=== PATIENT | female | born 1975 | race Caucasian/White ===

== ENCOUNTER → 2024-03-20 15:01 | Outpatient (BNVA) | payer OTHER, SELFPAY | DX: R05.9 Cough, unspecified (principal) | CPT/HCPCS: 87400; 87426 ==

== ENCOUNTER 2024-06-29 16:15 | Outpatient (CLI) | payer OTHER, SELFPAY ==
--- NOTE | 2024-06-29 16:19 | XRR_ITS ---
PROCEDURE INFORMATION: Exam: XR Cervical Spine Exam date and time: 06/29/2024 4:36 PM Age: 49 years old Clinical indication: Neck pain TECHNIQUE: Imaging protocol: Radiologic exam of the cervical spine. Views: 2 or 3 views. COMPARISON: CR XR chest 2V* [id number] 06/29/2024 4:36 PM FINDINGS: Bones/joints: Straightening of the cervical spine. 1-2 mm anterolisthesis of C3, C4, and C7. 2 mm retrolisthesis of C5. Mild C5-C6 degenerative disc disease. Mild scoliosis convex to the right. Otherwise, unremarkable. Soft tissues: Unremarkable. XR/XR cervical spine 3V* [id number] IMPRESSION: 1. No acute findings. 2. Additional details as above.
--- NOTE | 2024-06-29 16:19 | XRR_ITS ---
PROCEDURE INFORMATION: Exam: XR Chest Exam date and time: 06/29/2024 4:36 PM Age: 49 years old Clinical indication: Cough; Additional info: Chronic cough TECHNIQUE: Imaging protocol: Radiologic exam of the chest. Views: 2 views. COMPARISON: CR XR cervical spine 3V* [id number] 06/29/2024 4:36 PM FINDINGS: Lungs: Unremarkable. No consolidation. Pleural spaces: Unremarkable. No pleural effusion. No pneumothorax. Heart/Mediastinum: Unremarkable. No cardiomegaly. Bones/joints: Mild scoliosis. Otherwise, unremarkable. XR/XR chest 2V* [id number] IMPRESSION: No acute disease.
== END 2024-06-29 16:16 | disposition home or self-care (01) ==
PROVIDERS: Visit Provider Nurse Practitioner Family
DX: R05.3 Chronic cough (principal); M43.12 Spondylolisthesis, cervical region
CPT/HCPCS: 71046; 72040

== ENCOUNTER 2025-03-08 18:30 | Emergency (ER) | payer OTHER, SELFPAY ==
[2025-03-08 19:07] VITALS: BP 105/74; PULSE 96; RESP 16; TEMP 36.5; O2SAT 99; BMI 24.0
--- NOTE | 2025-03-08 20:48 | XRR_ITS ---
PROCEDURE INFORMATION: Exam: XR Left Knee Exam date and time: 03/08/2025 9:48 PM Age: 49 years old Clinical indication: Injury or trauma; Fall; Work related; Blunt trauma; Knee; Left; Additional info: Fall/knee pain TECHNIQUE: Imaging protocol: Radiologic exam of the left knee. Views: 3 views. COMPARISON: No relevant prior studies available. FINDINGS: Bones/joints: Mild patellofemoral bony degenerative change. Query suprapatellar effusion. Soft tissues: Normal. Three views. XR/XR knee LT 3V* [id number] IMPRESSION: No definite acute fracture, subluxation, dislocation. Mild patellofemoral bony degenerative change. Query suprapatellar effusion.
[2025-03-08] MEDS: HYDROcodone-acetaminophen 7.5-325 mg Tablet 1 TAB PO (20:55)
--- NOTE | 2025-03-08 21:28 | ED_ITS ---
HPI - Extremity Problem General: Chief complaint: Extremity Injury, Lower Stated complaint: Fell and landed on Lt knee Time Seen by Provider: 03/08/25 20:05 Source: patient Mode of arrival: ambulatory Limitations: no limitations History of Present Illness: Patient is a 49-year-old female who presents the emergency department complaining of left knee pain, stating she was leaving work and slipped on a wet spot. This was a couple of hours prior to arrival, stating she landed on both knees but is having severe pain in her left knee with associated swelling. Has been unable to bear weight secondary to the pain, no previous surgeries or previous major injuries of the left knee. No radiation of the pain. She is reporting mild bruising. Difficulty straightening the leg due to the swelling and pain. Tearful at this time, vital stable. No other injuries with the fall. MD Complaint: joint swelling and joint pain Onset (ago): hour(s) Pain Consistency: constant Location: left and knee Severity scale (1-10): 10 Radiation: none Associated symptoms: Deny chest pain, fever(s) or rash Context: other (Fall) Related Data Home Medications ?Medication ?Instructions ?Recorded ?Confirmed albuterol sulfate 1.25 mg/3 mL 1.25 mg inhalation QID PRN 06/29/24 06/29/24 solution for nebulization Previous Rx's ?Medication ?Instructions ?Recorded albuterol 90 mcg-budesonide 80 2 inh inhalation 6XD IN N shortness 06/29/24 mcg/actuation HFA aerosol inhaler of breath #10.7 gram s benzonatate 100 mg capsule 100 mg PO TID PRN cough #90 caps 06/29/24 cephalexin 500 mg capsule 500 mg PO TID 10 days #30 ca ps 06/29/24 prednisone 10 mg tablet 30 mg (3 x 10 mg) PO DAILY 3 days 06/29/24 #9 tabs Allergies Allergy/AdvReac Type Severity Reaction Status Date / Time iron Allergy Intermediate pass out Verified 06/29/24 14:53 Review of Systems General: Reports: 10 or more systems reviewed and unremarkable except in HPI and below Const: Denies: fever(s) or chills Card: Denies: chest pain Resp: Denies: dyspnea or productive cough GI: Denies: abdominal pain, nausea, vomiting or diarrhea : Denies: flank pain Musc: Reports: joint pain (Left knee), joint swelling (Left knee) and limited range of motion; Denies: neck pain, back pain, extremity pain, extremity swelling, joint redness, joint warmth or muscle weakness Skin/Breast: Denies: rash Neuro: Denies: headache(s), numbness in extremities or weakness in extremities PFSH ED PFSH: Social History Smoking and tobacco/nicotine status: current every day tobacco/nicotine user Physical Exam Const: COMMON NORMALS: patient oriented x3, no limitations, healthy appearing, alert and well nourished OTHER: Tearful HENMT: COMMON NORMALS: normocephalic and atraumatic HEAD & SCALP: normocephalic and atraumatic Neck/C-Spine: COMMON NORMALS: full ROM, supple and no meningeal signs Resp: COMMON NORMALS: normal respiratory effort, No use of accessory muscles and clear to auscultation bilaterally AUSCULTATION: clear to auscultation bilaterally Cardio: COMMON NORMALS: regular rate and regular rhythm RATE: regular rate RHYTHM: regular rhythm Extremity: COMMON NORMALS: capillary refill normal and no clubbing, cyanosis or edema NARRATIVE EXTREMITY EXAM: Diffuse swelling and tenderness to palpation of the left knee with mild swelling to the medial aspect. Difficulty straightening secondary to the pain. The distal neurological exam is well, distal pulses palpable. Neuro: COMMON NORMALS: patient oriented x3, moves all extremities, no focal motor deficits and no sensory deficits noted SENSORIUM/ORIENTATION: Yes alert MENINGEAL SIGNS: Yes no meningeal signs Skin: COMMON NORMALS: no rashes or lesions noted GENERAL SKIN EXAM: no rashes or lesions noted Course Vital Signs: Vital signs: Vital Signs Temperature 97.7 F 03/08/25 19:07 Pulse Rate 96 03/08/25 19:07 Respiratory Rate 16 03/08/25 19:07 Blood Pressure 105/74 03/08/25 19:07 Pulse Oximetry 99 03/08/25 19:07 Oxygen Delivery Me thod Room Air 03/08/25 19:07 MDM - Extremity (Nontraumatic) Medical Decision Making This patient presented after injuring her knee, landing directly on her left knee after slipping on a wet spot at work. Quite a bit of swelling and tenderness on exam, patient tearful due to the pain. Difficulty extending it secondary to the pain and swelling. She was given [place], over the ED course this seemed to help her pain quite a bit. The x-ray did not show any acute fracture, subluxation, or dislocation. Cannot rule out internal derangement with just plain film, so we will refer her to orthopedics for further evaluation and potential MRI if she continues to have pain. She has made nonweightbearing with crutches at this time and given instructions for conservative therapy at home. Lab Data Radiology Impressions Knee X-Ray 03/08/25 20:48 IMPRESSION: No definite acute fracture, subluxation, dislocation. Mild patellofemoral bony degenerative change. Query suprapatellar effusion. All radiology interpretation(s) finalized by discharge Discharge Plan Discharge Patient Disposition: Home Clinical Impression: Left knee sprain Qualifiers: Encounter type: initial encounter Involved ligament of knee: unspecified ligament Qualified Code(s): S83.92XA - Sprain of unspecified site of left knee, initial encounter Condition: Stable Prescriptions: No Action albuterol sulfate 1.25 mg/3 mL solution for nebulization 1.25 mg inhalation QID PRN albuterol-budesonide 90-80 mcg/actuation HFA aerosol inhaler 2 inh inhalation 6XD PRN (Reason: shortness of breath) Qty: 10.7 0RF cephalexin 500 mg capsule 500 mg PO TID 10 Days Qty: 30 0RF benzonatate 100 mg capsule 100 mg PO TID PRN (Reason: cough) Qty: 90 0RF prednisone 10 mg tablet 30 mg PO DAILY 3 Days Qty: 9 0RF Discharge Orders: Discharge ED (Routine); Ordered 03/08/25 Ordered By: Eduardo Encinas Patient Instructions: Patient Portal & Goyo Instructions Activity Restrictions/Additional Instructions: Knee Sprain Discharge Instructions Diagnosis: Left knee sprain; X-ray negative for fracture. Internal derangement suspected. Disposition: - Non-weightbearing with crutches. - Orthopedic referral arranged. Instructions: - Activity: - Remain strictly non-weightbearing on the affected limb until evaluated by orthopedics. Use crutches for all ambulation. - Avoid any activities that place stress on the knee, including walking, running, squatting, or climbing stairs. - Acute Management: - Apply the RICE protocol: - Rest: Avoid use of the injured knee. - Ice: Apply ice packs (wrapped in a cloth) to the knee for 20 minutes every 2?3 hours during waking hours for the first 48?72 hours. - Compression: Use an elastic bandage if tolerated to minimize swelling, but avoid excessive tightness. - Elevation: Elevate the leg above heart level when possible to reduce swelling. - Vhns-wsl-[id number] analgesics (e.g., acetaminophen or NSAIDs) may be used for pain control if not contraindicated. - Monitoring: - Watch for signs of worsening injury, including increasing pain, swelling, inability to move the knee, new numbness, tingling, or discoloration of the foot. - If the knee becomes locked (unable to fully extend), or if there is sudden instability (giving way), prompt re-evaluation is warranted. - Follow-up: - Attend the scheduled orthopedic appointment for further assessment, which may include advanced imaging (MRI) to evaluate for meniscal, ligamentous, or other internal derangement if clinically indicated. - Physical therapy may be recommended after orthopedic evaluation, as evidence supports rehabilitation-based care for most meniscal and ligamentous injuries unless there is severe mechanical dysfunction. Precautions: - Do not bear weight on the affected limb until cleared by orthopedics. - Do not remove crutches or discontinue non-weightbearing status without spe cialist input. When to Seek Immediate Care: - Severe, unrelenting pain not controlled by medication. - Inability to move the knee or perform a straight leg raise. - Signs of neurovascular compromise (numbness, tingling, pale or cool foot, loss of pulses). - Redness, warmth, or fever. Rationale: This management plan is consistent with the [place] [employer] Appropriateness Criteria for acute knee trauma, which recommend radiographs for initial evaluation and MRI for suspected internal derangement when X-ray is negative. Conservative management with RICE and non-weightbearing is standard for soft tissue injuries pending specialist assessment. Most meniscal and ligamentous injuries are managed nonoperatively unless there is mechanical dysfunction or instability. 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
[2025-03-08] MEDS: HYDROcodone-acetaminophen 5-325 mg Tablet 1 TAB PO ×2 (22:56)
--- NOTE | 2025-03-09 10:08 | PC.NURSE ---
Referral sent to ortho.
== END 2025-03-08 23:23 | disposition home or self-care (01) ==
PROVIDERS: Emergency Provider Physician Assistant
DX: S83.92XA Sprain of unspecified site of left knee, initial encounter (principal); Z72.0 Tobacco use; W01.0XXA Fall on same level from slipping, tripping and stumbling without subsequent striking against object, initial encounter
CPT/HCPCS: 73562; 99283; E0114; J9999

== ENCOUNTER → 2025-03-15 08:40 | Outpatient (BNVA) | payer OTHER, SELFPAY | PROVIDERS: Visit Provider Orthopaedic Surgery | DX: S83.8X2A Sprain of other specified parts of left knee, initial encounter (principal); X58.XXXA Exposure to other specified factors, initial encounter | CPT/HCPCS: 73562 ==

== ENCOUNTER 2025-03-22 12:01 | Outpatient (CLI) | payer OTHER, SELFPAY ==
--- NOTE | 2025-03-22 12:15 | MR_ITS ---
WS: [id number] MRI LEFT KNEE HISTORY: Knee pain after fall. COMPARISON: Radiograph 03/15/2025 Anterior cruciate ligament: Intact. Posterior cruciate ligament: Intact. Medial collateral ligament: Intact. Posterior lateral corner structures: Intact. Medial menisci: Horizontal tear posterior horn extends to the inferior articular surface. Tear also extends into the meniscal root. Lateral meniscus: Intact. Normal signal, size and shape. Extensor mechanism: Distal quadriceps tendon and patellar tendons are intact. Fluid and soft tissue: Small suprapatellar joint effusion. No Sebastian's cyst. Osseous and articular structures: Patellofemoral compartment: Normal patellofemoral joint space. There is extensive marrow edema involving just greater than 50% of the patella. Greatest amount of edema in the medial patellar facet with a nondisplaced fracture noted anteriorly. Medial compartment: No significant joint space narrowing. No marrow edema. Cartilage is intact. Lateral compartment: Preserved joint space. Focal marrow edema in the anterior lateral proximal tibia. Interruption of the trabecular pattern involving the anterior lateral tibia consistent with nondisplaced fractures. There is surrounding edema. MR/MR knee LT wo con* [id number] IMPRESSION: 1. Large amount of marrow edema in the patella with a nondisplaced fracture. F racture predominantly involves the anterior medial patella. 2. Additional focal marrow edema involving the anterior lateral tibial metaphy sis with interruption of the trabecula consistent with fractures. No displaceme nt. 3. Nondisplaced horizontal meniscal tear in the medial posterior horn with ext ension into the meniscal root. 4. Small joint effusion.
== END 2025-03-22 12:02 | disposition home or self-care (01) ==
LOC: RAD 12:02
PROVIDERS: Visit Provider Orthopaedic Surgery
DX: S83.8X2A Sprain of other specified parts of left knee, initial encounter (principal); M25.562 Pain in left knee; X58.XXXA Exposure to other specified factors, initial encounter
CPT/HCPCS: 73721

== ENCOUNTER → 2025-04-24 10:29 | Outpatient (BNVA) | payer OTHER, SELFPAY | PROVIDERS: Visit Provider Orthopaedic Surgery | DX: S80.02XD Contusion of left knee, subsequent encounter (principal); W19.XXXD Unspecified fall, subsequent encounter | CPT/HCPCS: 73560; 73565 ==

== ENCOUNTER 2025-06-05 11:02 | Emergency (ER) | payer SELFPAY ==
[2025-06-05 11:07] VITALS: BP 113/78; PULSE 78; RESP 14; TEMP 36.4; O2SAT 98; BMI 23.6
--- NOTE | 2025-06-05 11:18 | W.ED.ABDPA2 ---
HPI - Abdominal Pain General: Chief Complaint: Abdominal Pain Stated Complaint: urgent care sent, L side pain x4 days, n/v/f Time Seen by Provider: 06/05/25 11:18 History of Present Illness: 50-year-old female with no significant past medical history who presents emergency room with left lateral abdominal pain. She says it feels numb and that she has severe pain. It is a little better with movement but severe whenever she goes to sleep. No change in bowel movements or urination. No nausea or vomiting. Related Data Previous Rx's ?Medication ?Instructions ?Recorded gabapentin 100 mg capsule 100 mg PO TID #60 caps 06/05/25 hydrocodone 5 mg-acetaminophen 325 1 tab PO Q6H PRN pain #20 tabs 06/05/25 mg tablet polyethylene glycol 3350 17 17 g PO DAILY #510 grams 06/05/25 gram/dose oral powder (Miralax) prednisone 20 mg tablet 60 mg (3 x 20 mg) PO DAILY #20 tabs 06/05/25 valacyclovir 1 gram tablet 1,000 mg PO BID 10 days #20 tabs 06/05/25 (Valtrex) Allergies Allergy/AdvReac Type Severity Reaction Status Date / Time iron Allergy Intermediate pass out Verified 06/05/25 11:12 Review of Systems Narrative: Constitutional symptoms: Negative except as documented in HPI. Skin symptoms: Negative except as documented in HPI. Eye symptoms: Negative except as documented in HPI. ENMT symptoms: Negative except as documented in HPI. Respiratory symptoms: Negative except as documented in HPI. Cardiovascular symptoms: Negative except as documented in HPI. Gastrointestinal symptoms: Negative except as documented in HPI. Genitourinary symptoms: Negative except as documented in HPI. Musculoskeletal symptoms: Negative except as documented in HPI. Neurologic symptoms: Negative except as documented in HPI. Psychiatric symptoms: Negative except as documented in HPI. Endocrine symptoms: Negative except as documented in HPI. [facility] ED PFSH: Social History Smoking and tobacco/nicotine status: current every day tobacco/nicotine user Physical Exam Narrative: EXAM NARRATIVE: General: Alert, no acute distress. Skin: Warm, dry. There are some small excoriated areas and a patch on the left lateral abdominal wall. She says she has a numb spot there. With decreased sensation. Head: Normocephalic, atraumatic. Neck: Supple, trachea midline. Eye: Extraocular movements are intact. Ears, nose, mouth and throat: mucosa moist. Cardiovascular: Regular, Normal peripheral perfusion. Respiratory: Lungs are clear to auscultation, respirations are non-labored, breath sounds are equal, Symmetrical chest wall expansion. Gastrointestinal: Soft, Nontender, Non distended Musculoskeletal: Normal ROM, no deformity. Neurological: Alert and oriented, No focal neurological deficit observed. Psychiatric: Cooperative, appropriate mood & affect. Course Vital Signs: Vital signs: Vital Signs Temperature 97.5 F L 06/05/25 11:07 Pulse Rate 77 06/05/25 12:44 Respiratory Rate 14 06/05/25 11:07 Blood Pressure 137/85 06/05/25 12:44 Pulse Oximetry 99 06/05/25 12:44 MDM - Abdominal Pain Medical Decision Making Medical decision making Patient's reason for coming to the emergency room: Left flank/abdominal pain Social determinants: Patient is employed I reviewed the patient's medical record. [facility]. I reviewed the patient's current home meds Patient not currently on any chronic medications Alternate historians: None Differential diagnosis: including but not limited to and based on the above HPI, review of systems and physical exam: From the history it seems as patient may have a radiculopathy or may be developing shingles but we will rule out other pathology. Basic lab work and a CT scan. Diverticulitis, pyelonephritis, ureterolithiasis. Colitis. Orders placed to evaluate differential diagnosis based on the above differential, HPI and physical exam Lab Review: Laboratory results were reviewed and interpreted by myself the emergency room physician. No leukocytosis. No anemia. No renal failure. Urinalysis is negative for infection. CT of the abdomen pelvis with contrast: No acute process. This was reviewed and interpreted by myself the emergency room physician. I also reviewed the radiology report. Assessment of risk: Level of risk: Low risk patient. Hospitalization considerations: No consideration of hospitalization. Reexamination: Patient remained stable. No increased work of breathing. No altered mental status. No focal motor deficits. Assessment and plan: Lumbar radiculopathy versus early shingles - Discharged home - Discussed plan with patient. Answered any questions. - Evaluation and treatment of this problem were appropriate in the emergency setting. Lab Data 06/05/25 11:23 06/05/25 11:23 Labs/Radiology: Radiology Impressions Abdomen/Pelvis CT 06/05/25 11:28 IMPRESSION: No acute findings. COMMENTS: Consistent with the [place] [employer]'s Incidental Findings Committee white paper (J Am Gabriel Radiol 2018): Any incidental renal lesion less than 1 cm or classified as too small to characterize, or any incidental cystic renal lesion characterized as simple-appearing, is likely benign. No follow-up imaging is recommended for these lesions per consensus recommendations based on imaging criteria. Laboratory Results WBC 8.73 10^3/uL (3.29-11.43) 06/05/25 11:23 RBC 5.10 10^6/uL (3.85-5.65) 06/05/25 11:23 Hgb 15.70 g/dL (11.27-16.99) 06/05/25 11:23 Hct 46.4 % (36-47) 06/05/25 11:23 MCV 91.0 fl (85-98) 06/05/25 11:23 MCH 30.8 pg (27-33) 06/05/25 11:23 MCHC 33.8 g/dL (30-55) 06/05/25 11:23 RDW 12.8 % (12.1-15.1) 06/05/25 11:23 Plt Count 263 10^3/cmm (157-399) 06/05/25 11:23 MPV 9.8 fL (7.4-10.4) 06/05/25 11:23 Neut % (Auto) 67.5 % 06/05/25 11:23 Lymph % (Auto) 25.1 % 06/05/25 11:23 [place] % (Auto) 5.7 % 06/05/25 11:23 Eos % (Auto) 0.9 % 06/05/25 11:23 Baso % (Auto) 0.6 % 06/05/25 11:23 Neut # (Auto) 5.89 10^3/uL (1.8-7.7) 06/05/25 11:23 Lymph # (Auto) 2.2 10^3/uL (0.8-4.8) 06/05/25 11:23 [place] # (Auto) 0.5 10^3/uL (0.2-0.9) 06/05/25 11:23 Eos # (Auto) 0.1 10^3/uL (0.0-0.8) 06/05/25 11:23 Baso # (Auto) 0.1 10^3/uL (0.0-0.1) 06/05/25 11:23 Nucleated RBC % (auto) 0 % 06/05/25 11:23 Nucleated RBCs # 0.0 /100WBC 06/05/25 11:23 Sodium 139 mmol/L (136-145) 06/05/25 11:23 Potassium 3.8 mmol/L (3.5-5.1) 06/05/25 11:23 Chloride 104 mmol/L (98-107) 06/05/25 11:23 Carbon Dioxide 25 mmol/L (22-29) 06/05/25 11:23 Anion Gap 13.8 (5-19) 06/05/25 11:23 BUN 11 mg/dL (6-20) 06/05/25 11:23 Creatinine 0.6 mg/dL (0.5-0.9) 06/05/25 11:23 GFR Calculation 106.7 mL/min (90-130) 06/05/25 11:23 Glucose 96 mg/dL (65-115) 06/05/25 11:23 Calculated Osmolality 287 mOsm/kg (285-295) 06/05/25 11:23 Calcium 9.3 mg/dL (8.5-10.5) 06/05/25 11:23 Total Bilirubin 0.7 mg/dL (0.15-1.2) 06/05/25 11:23 AST 18 U/L (0-32) 06/05/25 11:23 ALT 11 U/L (0-33) 06/05/25 11:23 Alkaline Phosphatase 90 U/L (35-105) 06/05/25 11:23 Total Protein 7.3 g/dL (6.6-8.7) 06/05/25 11:23 Albumin 4.4 g/dL (3.5-5.2) 06/05/25 11:23 Globulin 2.9 g/dL (1.3-4.6) 06/05/25 11:23 Lipase 33 U/L (13-60) 06/05/25 11:23 HCG, Qual Negative (Negative) 06/05/25 11:23 Urine Color Yellow (Yellow) 06/05/25 11:36 Urine Appearance Clear (CLEAR) 06/05/25 11:36 Urine pH 6.5 (5-7) 06/05/25 11:36 Ur Specific [place] 1.026 (1.005-1.030) 06/05/25 11:36 Urine Protein Trace (Negative) A 06/05/25 11:36 Urine Glucose (UA) Negative (Normal) 06/05/25 11:36 Urine Ketones 2+ (Negative) H 06/05/25 11:36 Urine Blood Negative (Negative) 06/05/25 11:36 Urine Nitrate Negative (Negative) 06/05/25 11:36 Urine Bilirubin Negative (Negative) 06/05/25 11:36 Urine Urobilinogen 1.0 mg/dL (Negative) 06/05/25 11:36 Ur Leukocyte Esterase Negative (Negative) 06/05/25 11:36 Urine RBC 0-2 /hpf (0-2) 06/05/25 11:36 Urine WBC 0-5 /hpf (0-5) 06/05/25 11:36 Ur Squamous Epith Cells 0-5 /hpf (0-5) 06/05/25 11:36 Amorphous Sediment Not Reportable 06/05/25 11:36 Urine Bacteria None seen /hpf (NONE) 06/05/25 11:36 Hyaline Casts 1.65 /lpf 06/05/25 11:36 All radiology interpretation(s) finalized by discharge Discharge Plan Discharge Patient Disposition: Home Clinical Impression: Acute lumbar radiculopathy Condition: Stable Prescriptions: New valacyclovir [Valtrex] 1 gram tablet 1,000 mg PO BID 10 Days Qty: 20 0RF hydrocodone-acetaminophen 5-325 mg tablet 1 tab PO Q6H PRN (Reason: pain) Qty: 20 0RF prednisone 20 mg tablet 60 mg PO DAILY Qty: 20 0RF Rx Instructions: 3 tabs (60 mg) x 3 days. 2 tabs (40 mg) x 3 days. 1 tab (20 mg) x 3 days. 1/2 tab (10 mg) x 4 days gabapentin 100 mg capsule 100 mg PO TID Qty: 60 0RF Rx Instructions: Start with 1 tab 3 times daily. You may increase up to 3-4 tabs (300 to 400 mg) 3 times a day. polyethylene glycol 3350 [Miralax] 17 gram/dose powder 17 g PO DAILY Qty: 510 0RF Rx Instructions: Take 1 scoop daily while taking pain medications. Discharge Orders: Discharge ED (Routine); Ordered 06/05/25 Ordered By: Cassy Louise Discharge Diet: Usual diet Discharge Activity: Increase activity as tolerated Patient Instructions: Lumbar Radiculopathy (ED), Abdominal Pain (ED), Opioid Safety, Pain Management, Patient Portal & Goyo Instructions Activity Restrictions/Additional Instructions: Thank you for choosing [facility] for your healthcare needs today. You have been screened and evaluated and felt safe for discharge. Health conditions do change or evolve sometimes and as such it is important that you follow up with your Primary Doctor to be re checked, 3-5 days is a general good time frame for follow up. 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
[2025-06-05 11:28] LABS: Hematocrit 46.4 % (36-47); Hemoglobin 15.70 g/dL (11.27-16.99); Mean Corpuscular HGB Conc 33.8 g/dL (30-55); Mean Corpuscular Hemoglobin 30.8 pg (27-33); Mean Corpuscular Volume 91.0 fl (85-98); Nucleated Red Blood Cells % 0 %; Platelet Count 263 10^3/cmm (157-399); Red Blood Count 5.10 10^6/uL (3.85-5.65); White Blood Count 8.73 10^3/uL (3.29-11.43)
--- NOTE | 2025-06-05 11:28 | CTR_ITS ---
PROCEDURE INFORMATION: Exam: CT Abdomen And Pelvis With Contrast Exam date and time: 06/05/2025 12:20 PM Age: 50 years old Clinical indication: Abdominal pain TECHNIQUE: Imaging protocol: Computed tomography of the abdomen and pelvis with contrast. Radiation optimization: All CT scans at this facility use at least one of these dose optimization techniques: automated exposure control; mA and/or kV adjustment per patient size (includes targeted exams where dose is matched to clinical indication); or iterative reconstruction. Contrast material: [id number]; Contrast volume: 100 ml; Contrast route: INTRAVENOUS (IV); COMPARISON: CR XR chest 2V* [id number] 06/29/2024 4:36 PM RADIATION DOSE METRICS: Total DLP (mGy-cm): 437.9 FINDINGS: Liver: 5 mm right hepatic cyst. Gallbladder and biliary ducts: Normal. No calcified stones. No ductal dilation. Pancreas: Normal. No ductal dilation. Spleen: Normal. No splenomegaly. Adrenal glands: Normal. No mass. Kidneys and ureters: Small right renal cysts. Stomach and bowel: Unremarkable. No obstruction. No mucosal thickening. Appendix: No evidence of appendicitis. Intraperitoneal space: Unremarkable. No free air. No significant fluid collection. Vasculature: Unremarkable. No abdominal aortic aneurysm. Lymph nodes: Unremarkable. No enlarged lymph nodes. Urinary bladder: Unremarkable as visualized. Reproductive: Hysterectomy. Bones/joints: Unremarkable. No acute fracture. Soft tissues: Unremarkable. CT/CT abdomen pelvis w con* [id number] IMPRESSION: No acute findings. COMMENTS: Consistent with the [employer]'s Incidental Findings Committee white paper (J Am Gabriel Radiol 2018): Any incidental renal lesion less than 1 cm or classified as too small to characterize, or any incidental cystic renal lesion characterized as simple-appearing, is likely benign. No follow-up imaging is recommended for these lesions per consensus recommendations based on imaging criteria.
[2025-06-05 11:46] LABS: Alanine Aminotransferase 11 U/L (0-33); Albumin Level 4.4 g/dL (3.5-5.2); Alkaline Phosphatase 90 U/L (35-105); Anion Gap 13.8 (5-19); Aspartate Amino Transferase 18 U/L (0-32); Blood Urea Nitrogen 11 mg/dL (6-20); Calcium 9.3 mg/dL (8.5-10.5); Carbon Dioxide 25 mmol/L (22-29); Chloride 104 mmol/L (98-107); Globulin 2.9 g/dL (1.3-4.6); Glucose 96 mg/dL (65-115); Lipase 33 U/L (13-60); Osmolality Calculated 287 mOsm/kg (285-295); Potassium 3.8 mmol/L (3.5-5.1); Sodium 139 mmol/L (136-145); Total Protein 7.3 g/dL (6.6-8.7)
[2025-06-05 11:49] LABS: Glucose Urine UA Negative (Normal); Nitrate Urine Negative (Negative); Specific Gravity, Urine 1.026 (1.005-1.030)
[2025-06-05 11:52] LABS: Add Urine Microscopic? YES
[2025-06-05 11:52] LABS: HCG, Serum Qual Negative (Negative)
[2025-06-05] MEDS: iohexol 350 mg/mL 500 mL Btl (per mL) IV (12:23)
[2025-06-05 12:44] VITALS: BP 137/85; PULSE 77; O2SAT 99
== END 2025-06-05 12:49 | disposition home or self-care (01) ==
PROVIDERS: Emergency Medicine; Emergency Provider Emergency Medicine
DX: M54.16 Radiculopathy, lumbar region (principal); Z72.0 Tobacco use
CPT/HCPCS: 36415; 74177; 80053; 81001; 83690; 84703; 85025; 99285

== ENCOUNTER → 2025-06-12 13:36 | Outpatient (BNVA) | payer SELFPAY | PROVIDERS: Visit Provider Orthopaedic Surgery | DX: M25.562 Pain in left knee (principal); W19.XXXA Unspecified fall, initial encounter | CPT/HCPCS: 73560; 73565 ==

== ENCOUNTER → 2025-06-18 10:33 | Outpatient (BNVA) | payer SELFPAY | PROVIDERS: Visit Provider Orthopaedic Surgery | DX: M22.8X2 Other disorders of patella, left knee (principal); S83.242A Other tear of medial meniscus, current injury, left knee, initial encounter; X58.XXXA Exposure to other specified factors, initial encounter; M25.562 Pain in left knee; G89.29 Other chronic pain | CPT/HCPCS: 73560; 73565 ==